=== PATIENT | male | born 1965 | race Caucasian/White ===

== ENCOUNTER 2019-02-06 17:10 | Emergency (ER) | payer OTHER ==
--- NOTE | 2019-02-06 18:03 | EDPHY ---
H & P Time Seen by Provider: 02/06/19 17:49 HPI/ROS: Chief complaint: Right middle finger infection History of present illness: This is a 53-year-old male who presents to the emergency department for right middle finger infection. Reports the onset of symptoms 4 days ago. Symptoms have been progressively worsening. Describes redness, swelling and pain around the fingernail the right 3rd finger. No reported precipitating factors such as trauma. No alleviating factors. He denies associated signs or symptoms. He has never had similar. Smoking Status: Never smoked Physical Exam: General: Alert, nontoxic. Skin: Erythema and edema around the right 3rd finger fingernail consistent with a paronychia. Musculoskeletal: Good range of motion and strength in the DIP, PIP and MCP joint. Vascular: Capillary refill brisk in the right middle finger. Neurologic: Sensation intact in the right middle finger. Constitutional: Initial Vital Signs Temperature (C) 37 C 02/06/19 17:19 Heart Rate 81 02/06/19 17: Respiratory Rate 18 02/06/19 17:19 Blood Pressure 175/101 H 02/06/19 17:19 O2 Sat (%) 94 02/06/19 17:19 O2 Delivery Mode Room Air Allergies/Adverse Reactions: No Known Allergies Allergy (Unverified 02/06/19 17:19) Home Medications: Medication Instructions Recorded Cephalexin [Keflex] 500 mg PO TID 5 Days cap 02/06/19 Lipitor 02/06/19 Lisinopril 02/06/19 MDM/Departure - MDM Procedures: Procedure: Digital block Verbal consent was obtained. Digital block was performed by injecting 1.5 cc of bupivacaine without epinephrine into the lateral and medial aspect of the finger. Patient tolerated the procedure well. Good anesthesia was obtained. No complications noted. Procedure: Paronychia drainage. The patient's paronychia was located on the right middle finger. I obtained verbal consent from the patient to drain the abscess who was informed about the possibility of bleeding and pain. The paronychia was opened with a scalpel and a large amount of purulent drainage was expressed. I irrigated the wound and placed some packing. The patient tolerated the procedure well. The procedure was performed by myself. Medications Given: Discontinued Medications Cephalexin (Keflex 500 Mg Prepack#4) 1 btl TAKEHOME EDNOW ONE PRN Reason: Protocol Stop: 02/06/19 18:20 Last Admin: 02/06/19 18:38 Dose: 1 btl ED Course/Re-evaluation: Patient seen under the supervision of my secondary supervising physician Dr. Fritz Villalobos. Patient presents for a right middle finger paronychia. The finger is neurovascularly intact, it is anesthetized, the site is cleaned, drained, packing is placed and it is dressed. Patient is placed on Keflex. Packing is to be removed in 2-3 days. He is to follow up with a primary care doctor next week for recheck. Return precautions are given. The patient voiced understanding and agreement with plan. Differential Diagnosis: Included but not limited to paronychia, cellulitis, doubtful infectious tenosynovitis or osteomyelitis - Depart Disposition: Home, Routine, Self-Care Clinical Impression: Paronychia of finger Qualifiers: Laterality: right Qualified Code(s): L03.011 - Cellulitis of right finger Condition: Good Instructions: Cephalexin (By mouth), Paronychia (ED) Additional Instructions: Follow-up with your primary care doctor next week for continued evaluation and care Please soak your finger in warm soapy water multiple times daily If symptoms worsen or new symptoms develop return to the emergency department for recheck Prescriptions: Cephalexin [Keflex] 500 mg PO TID 5 Days cap Referrals: [facility] [Other] - As per Instructions
[2019-02-06] MEDS ORDERED: CEPHALEXIN 500MG PREPACK#4 BTL TAKEHOME ONE (18:19)
[2019-02-06 18:44] VITALS: BP 140/91
== END 2019-02-06 18:43 | disposition home or self-care (01) ==
PROC: 0H9GXZZ Drainage of Left Hand Skin, External Approach (ICD-10-PCS; principal; 2019-02-06)
DX: L03.011 Cellulitis of right finger (principal)